=== PATIENT | female | born 1965 | race Caucasian/White ===

== ENCOUNTER → 2016-08-22 | Outpatient (CLI) | payer MEDICAID ==
[~2016-08-22] MED LIST: ALPR2TAB2 PO; AMIT50TA PO; BACL-19 PO; CARB200T3 PO; IBUP800T PO; LEVO750T26 PO; LOSA50TA6 PO; METH4TAB2 PO; METH750T2 PO; MIRT45TA6 PO; OXYC15TA PO; PROM12.55 PO; QUET200T4 PO; SUMA50TA4 PO; ZOLP10TA PO
== END | disposition home or self-care (01) ==
LOC: RAD 13:32
PROVIDERS: ATTEND Internal Medicine
DX: R07.9 Chest pain, unspecified (principal); R05 Cough
CPT/HCPCS: 71020

== ENCOUNTER 2016-09-14 20:52 | Emergency (ER) | payer MEDICAID ==
[~2016-09-14] VITALS: Ht 167.6 cm; Wt 90.5 kg
[2016-09-14] MEDS ORDERED: HYDROmorphone 1 MG/ML, 1ML IM STA (21:10)
[2016-09-14] MEDS ORDERED: DIAZEPAM 5 MG/ML, 2ML IM STA (21:10)
[2016-09-14] MEDS ORDERED: DIAZEPAM 5 MG/ML, 10ML VIAL IM STA (21:13)
[2016-09-14] MEDS ORDERED: HYDROmorphone 1 MG/ML, 1ML ONE (21:14)
[2016-09-14] MEDS ORDERED: DIAZEPAM 5 MG/ML, 2ML ONE (21:15)
[2016-09-14 22:13] VITALS: BP 143/86
== END 2016-09-14 22:16 | disposition home or self-care (01) ==
LOC: ED 22:08
DX: M54.6 Pain in thoracic spine (principal); G89.29 Other chronic pain; M54.5 Low back pain; I10 Essential (primary) hypertension; E87.6 Hypokalemia; J44.0 Chronic obstructive pulmonary disease with (acute) lower respiratory infection; F17.210 Nicotine dependence, cigarettes, uncomplicated
CPT/HCPCS: 96372; 99284; J1170; J3360

== ENCOUNTER 2016-10-08 16:57 | Emergency (ER) | payer MEDICAID ==
[~2016-10-08] VITALS: Ht 167.6 cm; Wt 90.0 kg
[2016-10-08] MEDS ORDERED: BACL-19 PO (17:22)
[2016-10-08] MEDS ORDERED: AMIT25TA PO (17:22)
[2016-10-08] MEDS ORDERED: POTA10TA31 PO (17:22)
[2016-10-08] MEDS ORDERED: ZIPR80CA3 PO (17:22)
[2016-10-08] MEDS ORDERED: METH750T2 PO (17:22)
[2016-10-08] MEDS ORDERED: MIRT30TA6 PO (17:22)
[2016-10-08] MEDS ORDERED: CELE200C PO (17:22)
[2016-10-08] MEDS ORDERED: DIAZ5TAB4 PO (17:22)
[2016-10-08] MEDS ORDERED: SUMA100T4 PO (17:22)
[2016-10-08] MEDS ORDERED: GABA100C PO (17:22)
[2016-10-08] MEDS ORDERED: FLUO40CA2 PO (17:22)
[2016-10-08] MEDS ORDERED: GABAPENTIN 300 MG CAPSULE PO SCH (17:30)
[2016-10-08] MEDS ORDERED: KETOROLAC 30 MG/1 ML IM ONE (17:30)
[2016-10-08] MEDS ORDERED: KETOROLAC 30 MG/1 ML ONE (18:00)
[2016-10-08 20:29] VITALS: BP 134/72
== END 2016-10-08 20:33 | disposition home or self-care (01) ==
LOC: ED 19:12
DX: M79.651 Pain in right thigh (principal); R20.8 Other disturbances of skin sensation; I10 Essential (primary) hypertension
CPT/HCPCS: 72131; 96372; 99284; J1885

== ENCOUNTER 2017-01-20 16:00 | Inpatient (IN) | payer MEDICAID ==
[~2017-01-20] VITALS: Ht 167.6 cm; Wt 92.4 kg
[~2017-01-20 16:00] MED LIST changes: +AMIT25TA PO; +CELE200C PO; +DIAZ5TAB4 PO; +FLUO40CA2 PO; +GABA100C PO; +IBUP-1223 PO; -IBUP800T PO; +MIRT30TA6 PO; +POTA10TA31 PO; +SUMA100T4 PO; +ZIPR80CA3 PO
[2017-01-20] MEDS ORDERED: NALOXONE 1 MG/ML, 2ML IVPush ONE (17:30)
[2017-01-20 18:12] LABS: HEMATOCRIT 41.3 % (34.6-47.8); HEMOGLOBIN 13.4 g/dL (11.7-16.4); WHITE BLOOD COUNT 3.8 x10^3/uL (3.4-10)
[2017-01-20 18:23] LABS: ASPARTATE AMINO TRANSFERASE 15 U/L (15-37); BLOOD UREA NITROGEN 16 mg/dL (7-18)
[2017-01-20 18:31] LABS: ACETAMINOPHEN < 2 mcg/mL (10-30)
[2017-01-20] MEDS ORDERED: SODIUM CHLORIDE 0.9% 1,000 ML IV ONE ×2 (19:00→19:05)
[2017-01-20] MEDS ORDERED: SODIUM CHLORIDE FLUSH 10ML SYR IVF ONE (19:00)
[2017-01-20] MEDS ORDERED: ONDANSETRON 2MG/ML, 2ML IVPush PRN ×2 (19:30→20:30)
[2017-01-20] MEDS ORDERED: ONDANSETRON 2MG/ML, 2ML ONE (19:42)
[2017-01-20] MEDS ORDERED: D5%-0.9% NACL 1,000 ML IV SCH (20:30)
[2017-01-20] MEDS ORDERED: hydrALAzine 20 MG/ML, 1ML IVPush PRN (20:30)
[2017-01-20] MEDS ORDERED: ENOXAPARIN 40 MG/0.4 ML SQ SCH (20:30)
[2017-01-20 20:48] VITALS: BP 110/68
[2017-01-20] MEDS: D5%-0.9% NACL 1,000 ML IV SCH (21:59)
[2017-01-21 00:18] VITALS: BP 129/74
[2017-01-21] MEDS: D5%-0.9% NACL 1,000 ML IV SCH (05:24)
[2017-01-21 05:54] LABS: DAU SCREEN DISCLAIMER
[2017-01-21 07:04] LABS: ASPARTATE AMINO TRANSFERASE 9 U/L (15-37); BLOOD UREA NITROGEN 13 mg/dL (7-18)
[2017-01-21 07:30] VITALS: BP 103/53
[2017-01-21] MEDS ORDERED: METHOCARBAMOL 750 MG TABLET PO SCH (09:30)
[2017-01-21] MEDS ORDERED: SUMATRIPTAN 100 MG TABLET PO SCH (09:30)
[2017-01-21] MEDS ORDERED: GABAPENTIN 100 MG CAPSULE PO SCH (09:30)
[2017-01-21] MEDS ORDERED: IBUPROFEN 800 MG TABLET PO PRN (09:30)
[2017-01-21] MEDS ORDERED: PROMETHAZINE 25MG TABLET PO PRN (09:30)
[2017-01-21] MEDS ORDERED: ALPRazolam 1MG TABLET PO PRN (09:30)
[2017-01-21] MEDS ORDERED: LOSARTAN 50MG TABLET PO SCH (09:30)
[2017-01-21] MEDS ORDERED: FLU VACC QS2017-18 (36MOS+) UP/PF 0.5 ML IM-VACC ONE (10:30)
[2017-01-21] MEDS ORDERED: PNEUMOCOCCAL 23 VACCINE IM-VACC ONE (10:30)
[2017-01-21] MEDS ORDERED: OXYcodone IR 5MG TABLET PO SCH (11:00)
[2017-01-21] MEDS ORDERED: BACLOFEN 10 MG TABLET PO SCH (16:00)
[2017-01-21] MEDS ORDERED: DIAZEPAM 5 MG TABLET PO SCH (21:00)
[2017-01-21] MEDS ORDERED: ZOLPIDEM 10MG TABLET PO SCH (21:00)
[2017-01-21] MEDS ORDERED: CARBAMAZEPINE 200 MG TABLET PO SCH (21:00)
[2017-01-21] MEDS ORDERED: ZIPRASIDONE 40MG CAPSULE PO SCH (21:00)
[2017-01-21] MEDS ORDERED: QUETIAPINE 200 MG TABLET PO SCH (21:00)
[2017-01-21] MEDS ORDERED: AMITRIPTYLINE 25 MG TABLET PO SCH (21:00)
[2017-01-21] MEDS ORDERED: MIRTAZAPINE 30 MG TAB.RAPDIS PO SCH (21:00)
[2017-01-22] MEDS ORDERED: FLUOXETINE 20 MG CAPSULE PO SCH (09:00)
[2017-01-22] MEDS ORDERED: POTASSIUM CHLORIDE 10 MEQ TABLET.ER PO SCH (09:00)
== END 2017-01-21 12:01 | disposition home or self-care (01) | DRG 917 ==
LOC: ED 18:12 → EDIP 19:05 → 4WST 20:48
PROVIDERS: ADMIT Hospitalist; ATTEND Family Medicine
DX: T40.2X1A Poisoning by other opioids, accidental (unintentional), initial encounter (principal); G92 Toxic encephalopathy; Y92.89 Other specified places as the place of occurrence of the external cause; G89.29 Other chronic pain; T42.4X1A Poisoning by benzodiazepines, accidental (unintentional), initial encounter; I10 Essential (primary) hypertension; J44.9 Chronic obstructive pulmonary disease, unspecified; Z79.899 Other long term (current) drug therapy; Z86.73 Personal history of transient ischemic attack (TIA), and cerebral infarction without residual deficits; Z99.81 Dependence on supplemental oxygen
CPT/HCPCS: 36415; 80053; 80307; 80329; 82140; 82962; 83735; 84100; 85025; 90686; 90732; 93005; 96374; 96375; J1650; J2405; J7042; G0479; G0480; J2310; J7030

== ENCOUNTER → 2018-08-12 | Outpatient (CLI) | payer MEDICAID ==
[~2018-08-12] MED LIST changes: +LOSA50TA14 PO; -LOSA50TA6 PO; -MIRT30TA6 PO; +MIRT30TA97 PO; +MIRT45TA57 PO; -MIRT45TA6 PO
== END | disposition home or self-care (01) ==
LOC: RAD 16:54
PROVIDERS: ATTEND Family Medicine
DX: J44.9 Chronic obstructive pulmonary disease, unspecified (principal); M43.26 Fusion of spine, lumbar region
CPT/HCPCS: 71046

== ENCOUNTER 2018-08-29 21:50 | Emergency (ER) | payer MEDICAID ==
[~2018-08-29] VITALS: Ht 167.6 cm; Wt 86.7 kg
[2018-08-29 21:52] VITALS: BP 143/56
--- NOTE | 2018-08-29 22:05 | NUR ---
BRITTNEY RAIN, AT BEDSIDE TO EVALUATE PT.
[2018-08-29] MEDS ORDERED: OXYcodone/APAP 10/325MG TABLET ONE (22:23)
--- NOTE | 2018-08-29 22:28 | NUR ---
Pt medicated per MAR.
[2018-08-29] MEDS ORDERED: OXYcodone/APAP 10/325MG TABLET PO ONE (22:30)
--- NOTE | 2018-08-29 22:32 | NUR ---
Pt to imaging, with tech, via gureece.
== END 2018-08-29 23:33 | disposition home or self-care (01) ==
LOC: ED 22:17
DX: S39.012A Strain of muscle, fascia and tendon of lower back, initial encounter (principal); M25.551 Pain in right hip; M13.151 Monoarthritis, not elsewhere classified, right hip; I10 Essential (primary) hypertension; W01.0XXA Fall on same level from slipping, tripping and stumbling without subsequent striking against object, initial encounter; Y93.89 Activity, other specified; Y92.89 Other specified places as the place of occurrence of the external cause; Y99.8 Other external cause status
CPT/HCPCS: 72110; 72220; 99283

== ENCOUNTER 2019-02-11 10:54 | Emergency (ER) | payer MEDICAID ==
[~2019-02-11 10:54] MED LIST changes: +DOXE150C PO; -PROM12.55 PO; +PROM12.57 PO; +UMEC1DIS INH
[2019-02-11 11:15] VITALS: BP 148/79
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
[2019-02-11] MEDS ORDERED: OXYcodone/APAP 5/325MG TABLET PO ONE (12:00)
[2019-02-11] MEDS ORDERED: OXYcodone/APAP 5/325MG TABLET ONE (12:05)
[2019-02-11 12:12] LABS: BASOPHILS # (AUTO) 0.02 x10^3/uL (0-0.1); BASOPHILS % (AUTO) 0 % (0-1); EOSINOPHILS # (AUTO) 0.08 x10^3/uL (0-0.4); EOSINOPHILS % (AUTO) 1 % (1-7); LYMPHOCYTES # (AUTO) 1.02 x10^3/uL (1-3.4); LYMPHOCYTES % (AUTO) 15 % (22-44); MD NO; MEAN CORPUSCULAR HEMOGLOBIN 29.1 pg (27.0-34.8); MEAN CORPUSCULAR HGB CONC 32.1 g/dL (32.4-35.8); MEAN CORPUSCULAR VOLUME 90.7 fL (80-100); MEAN PLATELET VOLUME 7.7 fL (7.4-10.4); MONOCYTES # (AUTO) 0.61 x10^3/uL (0.2-0.8); MONOCYTES % (AUTO) 9 % (2-9); NEUTROPHILS # (AUTO) 4.95 x10^3/uL (1.8-6.8); NEUTROPHILS % (AUTO) 74 % (42-75); PLATELET COUNT 480 x10^3/uL (130-400); RED BLOOD COUNT 3.69 x10^6/uL (3.82-5.3); RED CELL DISTRIBUTION WIDTH 15.6 % (9.6-15.2)
--- NOTE | 2019-02-11 12:55 | NUR ---
SLING PLACED ON PT. CRUTCHER HELPER HAS SEEN PT.
== END 2019-02-11 13:16 | disposition home or self-care (01) ==
LOC: ED 13:14
DX: M25.511 Pain in right shoulder (principal); I10 Essential (primary) hypertension; J44.9 Chronic obstructive pulmonary disease, unspecified; F17.210 Nicotine dependence, cigarettes, uncomplicated
CPT/HCPCS: 36415; 85025; 99284

== ENCOUNTER → 2019-05-11 | Outpatient (CLI) | payer MEDICAID | END | disposition home or self-care (01) | LOC: CFH 13:16 | PROVIDERS: ATTEND Orthopaedic Surgery | DX: S42.221D 2-part displaced fracture of surgical neck of right humerus, subsequent encounter for fracture with routine healing (principal); R59.0 Localized enlarged lymph nodes; X58.XXXD Exposure to other specified factors, subsequent encounter ==

== ENCOUNTER 2019-06-16 05:32 | Day surgery (SDC) | payer MEDICAID ==
[2019-06-13 16:16] LABS: ALBUMIN 3.5 g/dL (3.4-5.0); ANION GAP 8 mmol/L (5-15); CALCIUM 8.6 mg/dL (8.5-10.1); CHLORIDE 108 mmol/L (98-107)
[2019-06-13 16:20] LABS: ALANINE AMINOTRANSFERASE 20 U/L (12-78); ALKALINE PHOSPHATASE 137 U/L (45-117); BILIRUBIN,TOTAL 0.1 mg/dL (0.2-1.0); CREATININE 0.77 mg/dL (0.55-1.02); TOTAL PROTEIN 7.6 g/dL (6.4-8.2)
[~2019-06-16 05:32] MED LIST changes: +ALBU8.5H8 INH; +CARB200T4 PO; +HYDR25TA6 PO; +MIRT45TA61 PO; -OXYC15TA PO; +OXYC15TA3 PO; +ZOLP5TAB6 PO
[2019-06-16] MEDS ORDERED: FENTANYL PF 250 MCG/5ML ONE (06:11)
[2019-06-16] MEDS ORDERED: MIDAZOLAM 1 MG/ML, 2ML ONE (06:11)
[2019-06-16] MEDS ORDERED: KETOROLAC 30 MG/1 ML ONE (06:14)
[2019-06-16] MEDS ORDERED: SCOPOLAMINE 1MG PATCH TD SCH (06:30)
[2019-06-16] MEDS ORDERED: GABAPENTIN 300 MG CAPSULE PO ONE (06:30)
[2019-06-16] MEDS ORDERED: ACETAMINOPHEN 500 MG TABLET PO ONE (06:30)
[2019-06-16] MEDS ORDERED: LACTATED RINGERS 1,000 ML IV SCH (07:09)
== END 2019-06-16 06:30 | disposition home or self-care (01) ==
LOC: OUT 05:32
PROVIDERS: ATTEND Orthopaedic Surgery
DX: T84.498A Other mechanical complication of other internal orthopedic devices, implants and grafts, initial encounter (principal); Z53.8 Procedure and treatment not carried out for other reasons; Y83.8 Other surgical procedures as the cause of abnormal reaction of the patient, or of later complication, without mention of misadventure at the time of the procedure
CPT/HCPCS: 36415; 80053; 93005; J1885; J2250; J3010

== ENCOUNTER 2019-06-16 06:59 | Emergency (ER) | payer MEDICAID ==
[~2019-06-16] VITALS: Ht 167.6 cm; Wt 70.0 kg
[~2019-06-16 06:59] MED LIST changes: +OXYC15TA PO; -OXYC15TA3 PO
[2019-06-16] MEDS ORDERED: KETOROLAC 30 MG/1 ML IM ONE (07:30)
[2019-06-16] MEDS ORDERED: ONDANSETRON ODT 4 MG PO ONE (07:30)
--- NOTE | 2019-06-16 07:46 | NUR ---
Pt changed into gown and resting on gurney. NAD, even and unlabored respirations, denies additional needs, call light within reach, WCTM
[2019-06-16] MEDS ORDERED: ONDANSETRON ODT 4 MG ONE (07:47)
[2019-06-16] MEDS ORDERED: KETOROLAC 30 MG/1 ML ONE (07:47)
--- NOTE | 2019-06-16 08:00 | NUR ---
late entry: pt medicated per JUN, given discharge instructions and walker. Calling [facility] for taxi. NAD, even and unlabored respirations.
[2019-06-16 08:08] VITALS: BP 119/65
== END 2019-06-16 08:15 | disposition home or self-care (01) ==
LOC: ED 07:39
DX: M25.531 Pain in right wrist (principal); M79.604 Pain in right leg; J44.9 Chronic obstructive pulmonary disease, unspecified; I10 Essential (primary) hypertension; E87.6 Hypokalemia; I95.9 Hypotension, unspecified; F17.210 Nicotine dependence, cigarettes, uncomplicated; Z86.73 Personal history of transient ischemic attack (TIA), and cerebral infarction without residual deficits
CPT/HCPCS: 96372; 99283; J1885; Q0162

== ENCOUNTER 2020-05-23 03:47 | Emergency (ER) | payer MEDICAID ==
[~2020-05-23] VITALS: Ht 167.6 cm; Wt 70.0 kg
[~2020-05-23 03:47] MED LIST changes: +METH-640 PO; -METH750T2 PO; -OXYC15TA PO; +OXYC15TA3 PO
--- NOTE | 2020-05-23 04:17 | NUR ---
INITIAL PT CONTACT. PT PRESENTS TO ED C/O "I FEEL VERY SICK, LOTS OF NAUSEA, LOST MY TASTE AND HOT SWEATS. I DONT FEEL GOOD. I HAVE IT, I DO, I JUST KNOW IT. I HAVE TO AND SHE HAS TO HAVE IT TOO. I ONLY CAN EAT ICE AND SHE KEEPS HAVING THE ICE AFTER ME AND EATING AFTER ME TOO." PT FRANTIC IN ROOM AND ANXIOUS DURING EXAM. PT CONTINUALLY REPEATING SELF AND NOT MAKING EYE CONTACT WITH STAFF AND THIS RN. PT ACCOMPAINED BY GRANDDAUGHTER. SITTING UPRIGHT ON GURNEY, PROVIDED BLANKET. CALL LIGHT IN REACH
--- NOTE | 2020-05-23 05:02 | NUR ---
PT SITTING UPRIGHT ON GURVERONICA, NADN, VSS. CALL LIGHT AND PERSONAL BELONGINGS WITHIN REACH.
--- NOTE | 2020-05-23 05:23 | NUR ---
x ray at bedside
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
[2020-05-23 06:01] VITALS: BP 150/72
--- NOTE | 2020-05-23 06:02 | NUR ---
PT SITTING UPRIGHT ON MINISTERIO FALCON, VSS. PT RESTING CALMLY. CALL LIGHT AND PERSONAL BELONGINGS WITHIN REACH.
--- NOTE | 2020-05-23 06:32 | NUR ---
ERP AT BEDSIDE
--- NOTE | 2020-05-23 07:01 | NUR ---
BEDSIDE REPORT TO AMMY KWOK AND CE KWOK
--- NOTE | 2020-05-23 07:01 | NUR ---
REPORT FROM DESIRE KWOK.
--- NOTE | 2020-05-23 07:38 | NUR ---
PT IS RESTING ON GURNEY WATCHING TV WITH DONALDTER ASLEEP BESIDE HER. PT HAS ONE LEG HANGING OVER THE BEDRAIL. SHE STATES SHE IS CONCERNED THAT "SINCE THEY TAKE BATHS TOGETHER, SHE HAS WHATEVER I HAVE." LINDA HOLLOWAY ORDERED. CALL LIGHT WITHIN REACH. PRIYANKA BIRCH ADVISED THEY WILL BRING A RECLINER CHAIR DOWN FOR THE GRANDAUGHTER AND SOME TOYS.
--- NOTE | 2020-05-23 08:48 | NUR ---
PT UP TO BR, USING ROLLING WALKER WITH RIGHT HAND. PT REQUESTING AND PROVIDED WITH A FEMININE HYGIENE PAD. PT THEN WANTING CLEAN CLOTHS. "I PEED MYSELF" CLOTHING PROVIDED TO PT. PT THREW HER SOILED CLOTHING INTO GARBAGE CAN. PT UNABLE TO PROVIDE URINE SPECIMAN. SPECIMAN CUP FOUND ON FLOOR EMPTY. PT BACK TO ROOM USING ROLLING WALKER WITH ONE HAND. PT PROVIDE WITH BREAKFAST TRAY.
--- NOTE | 2020-05-23 12:31 | NUR ---
pt d/c in wheelchair to phone to call her boyfriend for a ride. She was advised that we did test her for COVID and the results would be 2-3 days. She stated she was not happy with that and that she would "call corporate." She wanted the pink blanket she came in with and a small notepad thrown away. no iv to DC. Reviewed D/C instructions, understanding verbalized.
== END 2020-05-23 12:32 | disposition home or self-care (01) ==
LOC: ED 05:50
DX: J44.1 Chronic obstructive pulmonary disease with (acute) exacerbation (principal); Z20.822 Contact with and (suspected) exposure to COVID-19; R06.00 Dyspnea, unspecified; R06.02 Shortness of breath; R11.0 Nausea; M19.90 Unspecified osteoarthritis, unspecified site; I95.9 Hypotension, unspecified; Z86.73 Personal history of transient ischemic attack (TIA), and cerebral infarction without residual deficits
CPT/HCPCS: 71045; 87635; 93005; 99285

== ENCOUNTER 2020-07-24 21:26 | Inpatient (IN) | payer MEDICAID ==
[~2020-07-24] VITALS: Ht 165.1 cm; Wt 70.2 kg
[~2020-07-24 21:26] MED LIST changes: +ETOMIDATE 20 MG/10 ML ONE; +MIDAZOLAM 1 MG/ML, 5ML ONE; +PROPOFOL 10 MG/ML, 100ML IV ONE; +ROCURONIUM 10MG/ML,5ML ONE
[2020-07-24] MEDS ORDERED: methylPREDNISolone SOD SUCC 125 MG/2 ML IVPush ONE (21:30)
[2020-07-24] MEDS ORDERED: ALBUTEROL/IPRATROPIUM 2.5MG/0.5MG, 3 ML NPPB PRN (21:30)
[2020-07-24] MEDS ORDERED: SODIUM CHLORIDE FLUSH 10ML SYR IVF ONE (21:30)
[2020-07-24] MEDS ORDERED: SODIUM CHLORIDE 0.9% 1,000ML IVBOLUS ONE ×3 (21:30→23:00)
--- NOTE | 2020-07-24 21:41 | NUR ---
PT. IMMEDIATELY MOVED TO TRAUMA ROOM FROM ED 15 UPON ARRIVAL TO ED FOR INTUBATION.
[2020-07-24] MEDS ORDERED: PLEASE ENTER HEIGHT AND WEIGHT MC SCH (22:00)
[2020-07-24 22:15] LABS: MEAN CORPUSCULAR HEMOGLOBIN 30.2 pg (27.0-34.8); MEAN CORPUSCULAR HGB CONC 32.5 g/dL (32.4-35.8); MEAN PLATELET VOLUME 8.4 fL (7.4-10.4); PLATELET COUNT 250 x10^3/uL (130-400); RED BLOOD COUNT 3.38 x10^6/uL (3.82-5.3); RED CELL DISTRIBUTION WIDTH 14.7 % (9.6-15.2)
[2020-07-24 22:27] LABS: ALBUMIN 2.3 g/dL (3.4-5.0); ANION GAP 20 mmol/L (5-15); CALCIUM 7.6 mg/dL (8.5-10.1); CHLORIDE 98 mmol/L (98-107); CREATININE 3.25 mg/dL (0.55-1.02)
[2020-07-24] MEDS ORDERED: NOREPINEPHRINE 8 MG in SODIUM CHLORIDE 0.9% 242 ML IV PRN (22:30)
[2020-07-24] MEDS ORDERED: ETOMIDATE 20 MG/10 ML IV ONE (22:30)
[2020-07-24] MEDS ORDERED: ROCURONIUM 10 MG/ML,10ML IVPush ONE (22:30)
[2020-07-24] MEDS ORDERED: PROPOFOL 100 ML IV PRN (22:30)
[2020-07-24] MEDS ORDERED: MIDAZOLAM 1 MG/ML, 2ML IVPush ONE (22:30)
--- NOTE | 2020-07-24 22:31 | NUR ---
X-RAY DONE AT THIS TIME. PER DR. NESSA BASHIR TO USE CENTRAL LINE NOW.
[2020-07-24 22:44] LABS: ALANINE AMINOTRANSFERASE 2906 U/L (12-78); ALKALINE PHOSPHATASE 410 U/L (45-117); BILIRUBIN,TOTAL 1.7 mg/dL (0.2-1.0); TOTAL PROTEIN 6.4 g/dL (6.4-8.2)
[2020-07-24 22:50] LABS: BAND#(MANUAL) 1.06 x10^3/uL; BANDS%(MANUAL) 7 % (0-7); LYMPH#(MANUAL) 1.06 x10^3/uL (1-3.4); LYMPHS% (MANUAL) 7 % (22-44); METAMYELOCYTES# (MANUAL) 0.15 x10^3/uL (0-0); METAMYELOCYTES% (MANUAL) 1 % (0-1); MONOS#(MANUAL) 0.45 x10^3/uL (0.3-2.7); MONOS% (MANUAL) 3 % (2-9); MYELOCYTES% (MANUAL) 2 % (0-0); SEG#(MANUAL) 12.08 x10^3/uL (1.8-6.8); SEGS% (MANUAL) 80 % (42-75)
[2020-07-24 22:52] LABS: ANISOCYTOSIS 1+; POLYCHROMASIA 1+
[2020-07-24 22:53] LABS: OVALOCYTES 1+
[2020-07-24 22:54] LABS: <PLATELET ESTIMATE> ADEQUATE; <PLT MORPHOLOGY> NORMAL PLT MORPH
[2020-07-24] MEDS ORDERED: CEFTRIAXONE 1,000 MG in DEXTROSE 5% 50 ML IVPB ONE (23:00)
[2020-07-24] MEDS ORDERED: HEPARIN 5,000 UNITS/ML, 1ML IV ONE (23:00)
[2020-07-24] MEDS ORDERED: AZITHROMYCIN 500 MG in SODIUM CHLORIDE 0.9% 250 ML IV ONE (23:00)
[2020-07-24] MEDS ORDERED: VANCOMYCIN PER PHARMACY MC ONE (23:00)
[2020-07-24] MEDS ORDERED: HEPARIN 5,000 UNITS/ML, 1ML IV PRN (23:00)
[2020-07-24] MEDS ORDERED: ASPIRIN 300 MG SUPP PR ONE (23:00)
[2020-07-24] MEDS ORDERED: VANCOMYCIN 2,000 MG in SODIUM CHLORIDE 0.9% 500 ML IV ONE (23:00)
--- NOTE | 2020-07-24 23:04 | NUR ---
SUMMARY OF CARE: 2140: IO ESTABLISHED FOR INTUBATION AFTER MULTIPLE FAILED ATTEMPTS AT IV ACCESS; IO REMOVED AT 2300. 2140: ROCURONIUM 80MG IO AND ETOMIDATE 20MG IO 2147: INTUBATED WITH 7.5 TUBE 21 AT THE LIP. BREATH SOUNDS EQUAL ALL RICH, ETCO2=36, EQUAL CHEST RISE/FALL. 2153: 5MG VERSED IO VENT SETTINGS: A/C 14, 500, 100%, PEEP 5
--- NOTE | 2020-07-24 23:10 | NUR ---
REPORT TO RISSA BOWEN TO ASSUME CARE OF PT.
[2020-07-24] MEDS ORDERED: PROMETHAZINE 25 MG/ML, 1ML IM PRN (23:30)
[2020-07-24] MEDS ORDERED: VANCOMYCIN PER PHARMACY MC PRN (23:30)
[2020-07-24] MEDS: ALBUTEROL/IPRATROPIUM 2.5MG/0.5MG, 3 ML HHN SCH (23:30)
[2020-07-24] MEDS ORDERED: HEPARIN 5,000 UNITS/ML, 1ML SQ SCH (23:30)
[2020-07-24] MEDS ORDERED: SODIUM CHLORIDE 0.9% 1,000 ML IV SCH (23:30)
[2020-07-24] MEDS ORDERED: PHARMACY MAY ADJ FOR RENAL FX MC PRN (23:30)
--- NOTE | 2020-07-24 23:30 | NUR ---
REPORT FROM CAROLINA KWOK, TRANSFER OF CARE AT THIS TIME
--- NOTE | 2020-07-24 23:35 | NUR ---
PHARM CALLED FOR ABX, STS WILL SEND AFTER VERIFIED
[2020-07-24 23:40] LABS: ALBUMIN 2.2 g/dL (3.4-5.0); BILIRUBIN, DIRECT 1.3 mg/dL (0.1-0.2)
[2020-07-24] MEDS ORDERED: HEPARIN 5,000 UNITS/ML, 1ML ONE (23:44)
[2020-07-24] MEDS ORDERED: HEPARIN 25,000 UNITS/250ML PMX 250 ML ONE (23:45)
[2020-07-24] MEDS ORDERED: ASPIRIN 300 MG SUPP ONE (23:53)
[2020-07-24 23:55] LABS: BILIRUBIN,INDIRECT 0.4 mg/dL (0.0-2.0); BILIRUBIN,TOTAL 1.7 mg/dL (0.2-1.0); TOTAL PROTEIN 6.4 g/dL (6.4-8.2)
[2020-07-24] MEDS: HEPARIN 25,000 UNITS/250ML PMX 250 ML IV PRN (23:59)
--- NOTE | 2020-07-25 00:03 | NUR ---
HEPARIN STARTED AND VERIFIED WITH CAROLINA KWOK.
[2020-07-25 00:04] LABS: MICROSCOPIC INDICATED
[2020-07-25 00:18] LABS: POTASSIUM,URINE RANDOM 86 mmol/L; SODIUM,URINE RANDOM 12 mmol/L
[2020-07-25] MEDS: HEPARIN 25,000 UNITS/250ML PMX 250 ML IV PRN (00:22)
--- NOTE | 2020-07-25 00:29 | NUR ---
CALLED BACK UP TO CCU TO LET RN KNOW THAT THE LITER HANGING ON TRANSPORT WAS THE 3RD LITER. PER DR. SZYMANSKI PT. WAS TO RECEIVE TOTAL OF 3 LITERS; NOT THE TOTAL OF 1,000+1,000,+2,300 IT WAS ORDERED.
[2020-07-25] MEDS ORDERED: LIDOCAINE-MPF 1%, 2ML ENDO PRN (00:30)
[2020-07-25 00:40] LABS: CHLORIDE,URINE RANDOM < 10 mmol/L
[2020-07-25] MEDS ORDERED: LIDOCAINE-MPF 2% ,5ML ONE (00:50)
[2020-07-25] MEDS: methylPREDNISolone SOD SUCC 125 MG/2 ML IVPush SCH ×3 (00:55→17:03)
[2020-07-25 01:51] VITALS: BP 139/111
[2020-07-25 02:00] LABS: TRIGLYCERIDES 89 mg/dL (50-200)
[2020-07-25] MEDS: PIPERACILLIN/TAZO 3.375 GM in DEXTROSE 5% 50 ML IVPB SCH ×5 (02:35→22:24)
[2020-07-25] MEDS: ALBUTEROL/IPRATROPIUM 2.5MG/0.5MG, 3 ML HHN SCH ×4 (03:00→21:00)
[2020-07-25 04:00] VITALS: BP 104/71
[2020-07-25 04:21] LABS: BASOPHILS % (AUTO) 0 % (0-1); EOSINOPHILS % (AUTO) 0 % (1-7); LYMPHOCYTES % (AUTO) 3 % (22-44); MEAN CORPUSCULAR HGB CONC 32.6 g/dL (32.4-35.8); MEAN PLATELET VOLUME 8.8 fL (7.4-10.4); MONOCYTES % (AUTO) 4 % (2-9); NEUTROPHILS % (AUTO) 93 % (42-75); PLATELET COUNT 251 x10^3/uL (130-400); RED BLOOD COUNT 3.34 x10^6/uL (3.82-5.3); RED CELL DISTRIBUTION WIDTH 14.6 % (9.6-15.2)
[2020-07-25 04:29] LABS: ALBUMIN 2.2 g/dL (3.4-5.0); ANION GAP 14 mmol/L (5-15); CALCIUM 6.8 mg/dL (8.5-10.1); CHLORIDE 100 mmol/L (98-107)
[2020-07-25 04:40] LABS: ALKALINE PHOSPHATASE 419 U/L (45-117); BILIRUBIN,TOTAL 1.6 mg/dL (0.2-1.0); CREATININE 2.96 mg/dL (0.55-1.02); TOTAL PROTEIN 6.2 g/dL (6.4-8.2)
[2020-07-25 04:46] LABS: ALANINE AMINOTRANSFERASE 5712 U/L (12-78)
[2020-07-25] MEDS: ASPIRIN 325 MG TABLET EC PO SCH (06:00)
[2020-07-25] MEDS: LACTATED RINGERS 1,000 ML IV SCH ×3 (07:00→19:34)
[2020-07-25] MEDS: HEPARIN 5,000 UNITS/ML, 1ML IV PRN ×3 (07:16→20:35)
[2020-07-25] MEDS: FAMOTIDINE 20 MG/2 ML IVPush SCH ×2 (08:51→19:32)
[2020-07-25] MEDS: PROPOFOL 100 ML IV PRN ×2 (09:17→19:33)
[2020-07-25 09:47] LABS: AMPHETAMINE SCREEN, URINE Positive (Negative); BARBITURATE SCREEN, URINE Negative (Negative); BENZODIAZEPINE SCREEN, URINE Positive (Negative); CANNABINOID SCREEN, URINE Negative (Negative); COCAINE SCREEN, URINE Negative (Negative); METHADONE SCREEN, URINE Negative (Negative); OPIATE SCREEN, URINE Positive (Negative)
[2020-07-25 10:17] LABS: INTERNATIONAL NORMALIZED RATIO 1.56 (0.93-1.1); PROTHROMBIN TIME 16.5 Seconds (9.6-11.5)
[2020-07-25 12:00] LABS: IRON LEVEL 225 mcg/dL (50-170); TOTAL IRON BINDING CAPACITY 188 mcg/dL (250-450)
[2020-07-25 12:03] LABS: % IRON SATURATION 120 % (20-55)
[2020-07-25 13:11] LABS: ALBUMIN 2.2 g/dL (3.4-5.0); ANION GAP 10 mmol/L (5-15); CALCIUM 6.4 mg/dL (8.5-10.1); CHLORIDE 102 mmol/L (98-107)
[2020-07-25 13:34] LABS: ALANINE AMINOTRANSFERASE 6974 U/L (12-78); ALKALINE PHOSPHATASE 425 U/L (45-117); BILIRUBIN,TOTAL 1.1 mg/dL (0.2-1.0); CREATININE 3.42 mg/dL (0.55-1.02); TOTAL PROTEIN 6.2 g/dL (6.4-8.2)
[2020-07-25] MEDS: LACTULOSE 20 GM/30 ML UDC PO SCH (19:32)
[2020-07-26] MEDS: methylPREDNISolone SOD SUCC 125 MG/2 ML IVPush SCH ×4 (00:23→22:56)
[2020-07-26] MEDS: ALBUTEROL/IPRATROPIUM 2.5MG/0.5MG, 3 ML HHN SCH ×4 (02:44→19:50)
[2020-07-26] MEDS: PROPOFOL 100 ML IV PRN ×2 (03:45→17:00)
[2020-07-26] MEDS: LACTATED RINGERS 1,000 ML IV SCH ×4 (03:46→22:56)
[2020-07-26 03:47] LABS: BASOPHILS % (AUTO) 0 % (0-1); EOSINOPHILS % (AUTO) 0 % (1-7); LYMPHOCYTES % (AUTO) 4 % (22-44); MEAN CORPUSCULAR HEMOGLOBIN 30.5 pg (27.0-34.8); MEAN CORPUSCULAR HGB CONC 33.3 g/dL (32.4-35.8); MEAN PLATELET VOLUME 8.6 fL (7.4-10.4); MONOCYTES % (AUTO) 2 % (2-9); NEUTROPHILS % (AUTO) 94 % (42-75); PLATELET COUNT 229 x10^3/uL (130-400); RED BLOOD COUNT 3.12 x10^6/uL (3.82-5.3); RED CELL DISTRIBUTION WIDTH 14.5 % (9.6-15.2)
[2020-07-26 03:53] LABS: ALBUMIN 2.1 g/dL (3.4-5.0); ANION GAP 16 mmol/L (5-15); CHLORIDE 101 mmol/L (98-107)
[2020-07-26 03:56] VITALS: BP 125/78
[2020-07-26 03:59] LABS: INTERNATIONAL NORMALIZED RATIO 1.47 (0.93-1.1); PROTHROMBIN TIME 15.6 Seconds (9.6-11.5)
[2020-07-26 04:03] LABS: CALCIUM 5.7 mg/dL (8.5-10.1)
[2020-07-26] MEDS: HEPARIN 5,000 UNITS/ML, 1ML IV PRN ×2 (04:07→11:47)
[2020-07-26 04:18] LABS: ALANINE AMINOTRANSFERASE 5879 U/L (12-78); ALKALINE PHOSPHATASE 413 U/L (45-117); BILIRUBIN,TOTAL 0.9 mg/dL (0.2-1.0); CREATININE 4.13 mg/dL (0.55-1.02); TOTAL PROTEIN 5.9 g/dL (6.4-8.2)
[2020-07-26] MEDS: ASPIRIN 325 MG TABLET EC PO SCH (04:29)
[2020-07-26] MEDS: PIPERACILLIN/TAZO 3.375 GM in DEXTROSE 5% 50 ML IVPB SCH ×2 (04:29→10:56)
[2020-07-26] MEDS ORDERED: CALCIUM GLUCONATE 9.2 MEQ in SODIUM CHLORIDE 0.9% 100 ML IV ONE (05:30)
[2020-07-26] MEDS ORDERED: FUROSEMIDE 40 MG/4 ML IV ONE (08:00)
[2020-07-26] MEDS: LACTULOSE 20 GM/30 ML UDC PO SCH ×2 (08:38→19:15)
[2020-07-26] MEDS: FAMOTIDINE 20 MG/2 ML IVPush SCH (08:40)
[2020-07-26] MEDS: DEXMEDETOMIDINE 400 MCG in SODIUM CHLORIDE 0.9% 96 ML IV PRN (10:51)
[2020-07-26] MEDS: CALCIUM CARBONATE 500 MG TABLET PO SCH ×3 (10:53→19:15)
[2020-07-26 13:41] LABS: ANA SCREEN NEGATIVE (Negative)
--- NOTE | 2020-07-26 14:23 | NUR ---
Vital AF goal: 45 on propofol, 55 ml/hr off propofol Addendum: 07/26/20 at [address] Amended: Links added.
[2020-07-26] MEDS: PIPERACILLIN/TAZO(ZOSYN) 2.25 GM in NS 50 ML IVPB SCH ×2 (17:22→21:24)
[2020-07-26] MEDS: HEPARIN 25,000 UNITS/250ML PMX 250 ML IV PRN (18:39)
[2020-07-27] MEDS: ALBUTEROL/IPRATROPIUM 2.5MG/0.5MG, 3 ML HHN SCH ×4 (00:35→18:15)
[2020-07-27] MEDS: PROPOFOL 100 ML IV PRN ×4 (02:17→22:15)
[2020-07-27 04:00] VITALS: BP 96/68
[2020-07-27] MEDS: ASPIRIN 325 MG TABLET EC PO SCH (04:15)
[2020-07-27] MEDS: PIPERACILLIN/TAZO(ZOSYN) 2.25 GM in NS 50 ML IVPB SCH ×4 (04:15→22:56)
[2020-07-27] MEDS: LACTATED RINGERS 1,000 ML IV SCH (04:15)
[2020-07-27 04:38] LABS: MEAN CORPUSCULAR HGB CONC 32.7 g/dL (32.4-35.8); MEAN PLATELET VOLUME 8.7 fL (7.4-10.4); PLATELET COUNT 231 x10^3/uL (130-400); RED BLOOD COUNT 3.07 x10^6/uL (3.82-5.3); RED CELL DISTRIBUTION WIDTH 14.4 % (9.6-15.2)
[2020-07-27 04:47] LABS: ALBUMIN 2.2 g/dL (3.4-5.0); ANION GAP 17 mmol/L (5-15); CHLORIDE 99 mmol/L (98-107); CREATININE 4.87 mg/dL (0.55-1.02)
[2020-07-27 04:51] LABS: CALCIUM 5.3 mg/dL (8.5-10.1)
[2020-07-27 04:59] LABS: ALKALINE PHOSPHATASE 377 U/L (45-117); TOTAL PROTEIN 5.8 g/dL (6.4-8.2); VANCOMYCIN,RANDOM 24.3 mcg/mL
[2020-07-27 05:13] LABS: ALANINE AMINOTRANSFERASE 4136 U/L (12-78)
[2020-07-27] MEDS: HEPARIN 5,000 UNITS/ML, 1ML IV PRN (05:28)
[2020-07-27] MEDS ORDERED: CALCIUM GLUCONATE 0.46MEQ/1ML IVPB ONE (05:30)
[2020-07-27] MEDS ORDERED: CALCIUM GLUCONATE 9.2 MEQ in SODIUM CHLORIDE 0.9% 100 ML IV ONE (05:30)
[2020-07-27 05:43] LABS: BAND#(MANUAL) 2.43 x10^3/uL; BANDS%(MANUAL) 13 % (0-7); LYMPH#(MANUAL) 0.75 x10^3/uL (1-3.4); LYMPHS% (MANUAL) 4 % (22-44); METAMYELOCYTES% (MANUAL) 8 % (0-1); MONOS#(MANUAL) 0.56 x10^3/uL (0.3-2.7); MONOS% (MANUAL) 3 % (2-9); MYELOCYTES# (MANUAL) 0.19 x10^3/uL (0-0); MYELOCYTES% (MANUAL) 1 % (0-0); SEG#(MANUAL) 13.28 x10^3/uL (1.8-6.8); SEGS% (MANUAL) 71 % (42-75)
[2020-07-27 05:44] LABS: ANISOCYTOSIS 1+
[2020-07-27 05:45] LABS: <PLATELET ESTIMATE> ADEQUATE; <PLT MORPHOLOGY> NORMAL PLT MORPH; OVALOCYTES 1+; POLYCHROMASIA 1+
[2020-07-27] MEDS: FAMOTIDINE 20 MG TABLET PO SCH (08:31)
[2020-07-27] MEDS: LACTULOSE 20 GM/30 ML UDC PO SCH ×2 (08:31→22:15)
[2020-07-27] MEDS: CALCIUM CARBONATE 500 MG TABLET PO SCH ×3 (08:31→22:16)
[2020-07-27] MEDS: methylPREDNISolone SOD SUCC 125 MG/2 ML IVPush SCH ×2 (08:31→16:51)
[2020-07-27] MEDS: METOCLOPRAMIDE 5 MG/ML, 2ML IV SCH ×2 (10:39→16:51)
[2020-07-27] MEDS: CALCITRIOL 1 MCG/ML IVPush SCH ×2 (13:33→13:46)
[2020-07-27] MEDS: FENTANYL PF 100 MCG/2ML IVPush PRN ×2 (16:57→20:20)
[2020-07-27] MEDS ORDERED: NOREPINEPHRINE 8 MG in SODIUM CHLORIDE 0.9% 242 ML IV PRN (17:00)
[2020-07-28] MEDS: methylPREDNISolone SOD SUCC 125 MG/2 ML IVPush SCH (01:10)
[2020-07-28] MEDS: FENTANYL PF 100 MCG/2ML IVPush PRN ×5 (01:11→23:38)
[2020-07-28] MEDS: METOCLOPRAMIDE 5 MG/ML, 2ML IV SCH ×3 (01:11→20:15)
[2020-07-28] MEDS: ALBUTEROL/IPRATROPIUM 2.5MG/0.5MG, 3 ML HHN SCH ×4 (02:03→19:12)
[2020-07-28 02:05] LABS: OCCULT BLOOD NEGATIVE (NEGATIVE)
[2020-07-28] MEDS ORDERED: ASPIRIN 325 MG TABLET PO SCH (04:30)
[2020-07-28] MEDS: PIPERACILLIN/TAZO(ZOSYN) 2.25 GM in NS 50 ML IVPB SCH (05:02)
[2020-07-28 05:24] LABS: MEAN CORPUSCULAR HEMOGLOBIN 30.5 pg (27.0-34.8); MEAN CORPUSCULAR HGB CONC 33.6 g/dL (32.4-35.8); MEAN PLATELET VOLUME 8.4 fL (7.4-10.4); PLATELET COUNT 300 x10^3/uL (130-400); RED BLOOD COUNT 2.91 x10^6/uL (3.82-5.3)
[2020-07-28 05:32] LABS: ALBUMIN 2.2 g/dL (3.4-5.0); ANION GAP 13 mmol/L (5-15); CALCIUM 6.4 mg/dL (8.5-10.1); CHLORIDE 100 mmol/L (98-107); CREATININE 4.15 mg/dL (0.55-1.02); TRIGLYCERIDES 100 mg/dL (50-200)
[2020-07-28 05:39] LABS: ALANINE AMINOTRANSFERASE 3050 U/L (12-78); ALKALINE PHOSPHATASE 365 U/L (45-117); BILIRUBIN,TOTAL 1.3 mg/dL (0.2-1.0); TOTAL PROTEIN 5.9 g/dL (6.4-8.2)
[2020-07-28 06:23] LABS: BAND#(MANUAL) 4.02 x10^3/uL; BANDS%(MANUAL) 15 % (0-7); LYMPH#(MANUAL) 1.61 x10^3/uL (1-3.4); LYMPHS% (MANUAL) 6 % (22-44); METAMYELOCYTES# (MANUAL) 2.14 x10^3/uL (0-0); METAMYELOCYTES% (MANUAL) 8 % (0-1); MONOS#(MANUAL) 0.27 x10^3/uL (0.3-2.7); MONOS% (MANUAL) 1 % (2-9); MYELOCYTES# (MANUAL) 0.54 x10^3/uL (0-0); MYELOCYTES% (MANUAL) 2 % (0-0); SEG#(MANUAL) 18.22 x10^3/uL (1.8-6.8); SEGS% (MANUAL) 68 % (42-75)
[2020-07-28 06:24] LABS: <PLATELET ESTIMATE> ADEQUATE; <PLT MORPHOLOGY> NORMAL PLT MORPH; POLYCHROMASIA 1+
[2020-07-28] MEDS: PROPOFOL 100 ML IV PRN ×3 (06:42→17:28)
[2020-07-28] MEDS: CEFTRIAXONE 2 GM in DEXTROSE 5% 50 ML IVPB SCH (08:05)
[2020-07-28] MEDS: FAMOTIDINE 20 MG TABLET PO SCH (08:47)
[2020-07-28] MEDS: CALCIUM CARBONATE 500 MG TABLET PO SCH ×3 (08:47→20:15)
[2020-07-28] MEDS: HEPARIN 5,000 UNITS/ML, 1ML SQ SCH ×3 (08:49→23:39)
[2020-07-28 11:06] LABS: CLOSTRIDIUM DIFFICILE ANTIGEN NEGATIVE; CLOSTRIDIUM DIFFICILE TOXIN NEGATIVE (Negative)
[2020-07-28] MEDS: CALCITRIOL 1 MCG/ML SOL PO/NG SCH (11:24)
[2020-07-28] MEDS: methylPREDNISolone SOD SUCC 40 MG/ML IVPush SCH ×2 (11:43→23:40)
[2020-07-28] MEDS: DEXMEDETOMIDINE 400 MCG in SODIUM CHLORIDE 0.9% 96 ML IV PRN ×2 (20:15→23:49)
[2020-07-29] MEDS: ALBUTEROL/IPRATROPIUM 2.5MG/0.5MG, 3 ML HHN SCH ×4 (00:57→20:50)
[2020-07-29] MEDS: FENTANYL PF 100 MCG/2ML IVPush PRN ×3 (03:44→13:00)
[2020-07-29] MEDS: DEXMEDETOMIDINE 1,000 MCG in SODIUM CHLORIDE 0.9% 240 ML IV PRN ×3 (03:44→22:45)
[2020-07-29 04:26] LABS: MEAN CORPUSCULAR HEMOGLOBIN 29.6 pg (27.0-34.8); MEAN CORPUSCULAR HGB CONC 32.6 g/dL (32.4-35.8); MEAN PLATELET VOLUME 8.6 fL (7.4-10.4); PLATELET COUNT 298 x10^3/uL (130-400); RED BLOOD COUNT 3.25 x10^6/uL (3.82-5.3)
[2020-07-29] MEDS: ASPIRIN 81 MG TABLET CHEW PO SCH (04:27)
[2020-07-29] MEDS: morphine SULFATE 10 MG/ML, 1ML IVPush PRN (04:27)
[2020-07-29 04:34] LABS: ANION GAP 14 mmol/L (5-15); CALCIUM 7.8 mg/dL (8.5-10.1); CHLORIDE 101 mmol/L (98-107); CREATININE 3.73 mg/dL (0.55-1.02)
[2020-07-29 05:02] LABS: BAND#(MANUAL) 3.51 x10^3/uL; BANDS%(MANUAL) 13 % (0-7); LYMPH#(MANUAL) 0.81 x10^3/uL (1-3.4); LYMPHS% (MANUAL) 3 % (22-44); METAMYELOCYTES# (MANUAL) 0.54 x10^3/uL (0-0); METAMYELOCYTES% (MANUAL) 2 % (0-1); MONOS#(MANUAL) 0.81 x10^3/uL (0.3-2.7); MONOS% (MANUAL) 3 % (2-9); MYELOCYTES# (MANUAL) 1.89 x10^3/uL (0-0); MYELOCYTES% (MANUAL) 7 % (0-0); SEG#(MANUAL) 19.44 x10^3/uL (1.8-6.8); SEGS% (MANUAL) 72 % (42-75)
[2020-07-29 05:03] LABS: <PLATELET ESTIMATE> ADEQUATE; ANISOCYTOSIS 1+; POLYCHROMASIA 1+; TOXIC GRAN 1+
[2020-07-29 05:04] LABS: <PLT MORPHOLOGY> NORMAL PLT MORPH
[2020-07-29] MEDS ORDERED: ASPIRIN 81 MG TABLET EC PO SCH (06:00)
[2020-07-29] MEDS: CALCITRIOL 1 MCG/ML SOL PO/NG SCH (08:27)
[2020-07-29] MEDS: HEPARIN 5,000 UNITS/ML, 1ML SQ SCH ×2 (08:28→17:39)
[2020-07-29] MEDS: METOCLOPRAMIDE 5 MG/ML, 2ML IV SCH (08:28)
[2020-07-29] MEDS: FAMOTIDINE 20 MG TABLET PO SCH (08:28)
[2020-07-29] MEDS: CALCIUM CARBONATE 500 MG TABLET PO SCH ×3 (08:28→21:40)
[2020-07-29] MEDS: CEFTRIAXONE 2 GM in DEXTROSE 5% 50 ML IVPB SCH (08:29)
[2020-07-29] MEDS ORDERED: LACTULOSE 20 GM/30 ML UDC PO PRN (09:00)
[2020-07-29] MEDS: methylPREDNISolone SOD SUCC 40 MG/ML IVPush SCH (12:59)
[2020-07-29] MEDS: PROPOFOL 100 ML IV PRN (20:39)
[2020-07-30] MEDS: methylPREDNISolone SOD SUCC 40 MG/ML IVPush SCH (00:18)
[2020-07-30] MEDS: HEPARIN 5,000 UNITS/ML, 1ML SQ SCH ×3 (00:18→16:32)
[2020-07-30] MEDS: ALBUTEROL/IPRATROPIUM 2.5MG/0.5MG, 3 ML HHN SCH ×4 (02:39→18:46)
[2020-07-30] MEDS: FENTANYL PF 100 MCG/2ML IVPush PRN ×3 (04:16→11:35)
[2020-07-30 04:58] LABS: MEAN CORPUSCULAR HEMOGLOBIN 29.6 pg (27.0-34.8); MEAN CORPUSCULAR HGB CONC 32.4 g/dL (32.4-35.8); MEAN PLATELET VOLUME 8.4 fL (7.4-10.4); PLATELET COUNT 300 x10^3/uL (130-400); RED BLOOD COUNT 3.43 x10^6/uL (3.82-5.3); RED CELL DISTRIBUTION WIDTH 15.2 % (9.6-15.2)
[2020-07-30] MEDS: ASPIRIN 81 MG TABLET CHEW PO SCH (05:18)
[2020-07-30] MEDS: PROPOFOL 100 ML IV PRN ×3 (05:18→22:24)
[2020-07-30 06:17] LABS: BAND#(MANUAL) 2.75 x10^3/uL; BANDS%(MANUAL) 11 % (0-7); LYMPHS% (MANUAL) 2 % (22-44); MONOS% (MANUAL) 2 % (2-9); REACTIVE LYMPHS # (MANUAL) 0.25 x10^3/uL (0-0); REACTIVE LYMPHS % (MANUAL) 1 % (0-0)
[2020-07-30 06:18] LABS: MYELOCYTES% (MANUAL) 3 % (0-0)
[2020-07-30 06:19] LABS: METAMYELOCYTES# (MANUAL) 1.25 x10^3/uL (0-0); METAMYELOCYTES% (MANUAL) 5 % (0-1); MYELOCYTES# (MANUAL) 0.75 x10^3/uL (0-0)
[2020-07-30 06:20] LABS: SEGS% (MANUAL) 76 % (42-75)
[2020-07-30 06:21] LABS: <PLATELET ESTIMATE> ADEQUATE; <PLT MORPHOLOGY> NORMAL PLT MORPH; ANISOCYTOSIS 1+; POLYCHROMASIA 1+
[2020-07-30] MEDS: CEFTRIAXONE 2 GM in DEXTROSE 5% 50 ML IVPB SCH (07:48)
[2020-07-30] MEDS: DEXMEDETOMIDINE 1,000 MCG in SODIUM CHLORIDE 0.9% 240 ML IV PRN ×2 (07:48→16:15)
[2020-07-30] MEDS ORDERED: ERGOCALCIFEROL 50,000 UNIT CAPSULE PO SCH (10:00)
[2020-07-30] MEDS: CALCIUM CARBONATE 500 MG TABLET PO SCH ×3 (10:34→22:23)
[2020-07-30] MEDS: CALCITRIOL 1 MCG/ML SOL PO/NG SCH (10:34)
[2020-07-30] MEDS: FAMOTIDINE 20 MG/2 ML IVPush SCH (10:35)
[2020-07-30] MEDS: ERGOCALCIFEROL 8,000UNIT/ML PO SCH (11:35)
[2020-07-31] MEDS: HEPARIN 5,000 UNITS/ML, 1ML SQ SCH ×3 (00:31→17:01)
[2020-07-31] MEDS: DEXMEDETOMIDINE 1,000 MCG in SODIUM CHLORIDE 0.9% 240 ML IV PRN (00:31)
[2020-07-31] MEDS: FENTANYL PF 100 MCG/2ML IVPush PRN ×2 (01:44→07:26)
[2020-07-31] MEDS: ALBUTEROL/IPRATROPIUM 2.5MG/0.5MG, 3 ML HHN SCH ×2 (02:25→06:56)
[2020-07-31] MEDS: PROPOFOL 100 ML IV PRN (02:48)
[2020-07-31 04:30] LABS: MEAN CORPUSCULAR HEMOGLOBIN 30.5 pg (27.0-34.8); MEAN CORPUSCULAR HGB CONC 33.1 g/dL (32.4-35.8); MEAN PLATELET VOLUME 8.3 fL (7.4-10.4); PLATELET COUNT 268 x10^3/uL (130-400); RED BLOOD COUNT 3.22 x10^6/uL (3.82-5.3); RED CELL DISTRIBUTION WIDTH 15.7 % (9.6-15.2)
[2020-07-31 04:39] LABS: ALANINE AMINOTRANSFERASE 997 U/L (12-78); ALBUMIN 2.3 g/dL (3.4-5.0); ANION GAP 9 mmol/L (5-15); CALCIUM 8.5 mg/dL (8.5-10.1); CHLORIDE 106 mmol/L (98-107); CREATININE 3.21 mg/dL (0.55-1.02)
[2020-07-31 04:43] LABS: ALKALINE PHOSPHATASE 302 U/L (45-117); BILIRUBIN,TOTAL 0.7 mg/dL (0.2-1.0); CREATINE KINASE, TOTAL 18 U/L (26-192); TOTAL PROTEIN 5.7 g/dL (6.4-8.2); TRIGLYCERIDES 158 mg/dL (50-200)
[2020-07-31 05:12] LABS: ANISOCYTOSIS 1+; BAND#(MANUAL) 0.79 x10^3/uL; BANDS%(MANUAL) 4 % (0-7); LYMPH#(MANUAL) 0.59 x10^3/uL (1-3.4); LYMPHS% (MANUAL) 3 % (22-44); METAMYELOCYTES% (MANUAL) 1 % (0-1); MONOS% (MANUAL) 1 % (2-9); MYELOCYTES# (MANUAL) 0.59 x10^3/uL (0-0); MYELOCYTES% (MANUAL) 3 % (0-0); REACTIVE LYMPHS % (MANUAL) 1 % (0-0); SEG#(MANUAL) 17.23 x10^3/uL (1.8-6.8); SEGS% (MANUAL) 87 % (42-75)
[2020-07-31 05:13] LABS: <PLATELET ESTIMATE> ADEQUATE; <PLT MORPHOLOGY> NORMAL PLT MORPH; POLYCHROMASIA 1+
[2020-07-31] MEDS: ASPIRIN 81 MG TABLET CHEW PO SCH (05:13)
[2020-07-31] MEDS: CEFTRIAXONE 2 GM in DEXTROSE 5% 50 ML IVPB SCH (07:30)
[2020-07-31] MEDS ORDERED: OXYcodone 5 MG/5 ML ORAL.SOL UDC PO PRN (09:00)
[2020-07-31] MEDS: FAMOTIDINE 20 MG/2 ML IVPush SCH (09:28)
[2020-07-31] MEDS: CALCIUM CARBONATE 500 MG TABLET PO SCH ×3 (09:29→20:19)
[2020-07-31] MEDS: CALCITRIOL 1 MCG/ML SOL PO/NG SCH (09:30)
[2020-07-31] MEDS: FUROSEMIDE 40 MG/4 ML IV SCH ×2 (10:36→20:19)
[2020-07-31] MEDS ORDERED: ALPRazolam 1MG TAB PO PRN (11:30)
[2020-07-31] MEDS: OXYcodone 5 MG/5 ML ORAL.SOL UDC PO PRN ×2 (13:29→22:37)
[2020-07-31] MEDS: BUDESONIDE 0.5 MG/2 ML INHA INH SCH ×2 (15:30→20:33)
[2020-07-31] MEDS: ALBUTEROL/IPRATROPIUM 2.5MG/0.5MG, 3 ML NPPB SCH ×2 (15:40→20:33)
[2020-08-01] MEDS: HEPARIN 5,000 UNITS/ML, 1ML SQ SCH ×4 (01:05→21:03)
[2020-08-01] MEDS: OXYcodone 5 MG/5 ML ORAL.SOL UDC PO PRN ×3 (04:22→19:59)
[2020-08-01 04:39] LABS: MEAN CORPUSCULAR HEMOGLOBIN 30.8 pg (27.0-34.8); MEAN CORPUSCULAR HGB CONC 33.7 g/dL (32.4-35.8); MEAN PLATELET VOLUME 8.2 fL (7.4-10.4); PLATELET COUNT 229 x10^3/uL (130-400); RED BLOOD COUNT 3.06 x10^6/uL (3.82-5.3); RED CELL DISTRIBUTION WIDTH 15.7 % (9.6-15.2)
[2020-08-01 04:52] LABS: ALBUMIN 2.6 g/dL (3.4-5.0); ANION GAP 11 mmol/L (5-15); CALCIUM 8.8 mg/dL (8.5-10.1); CHLORIDE 103 mmol/L (98-107)
[2020-08-01 04:54] LABS: ALANINE AMINOTRANSFERASE 734 U/L (12-78); ALKALINE PHOSPHATASE 293 U/L (45-117); BILIRUBIN,TOTAL 0.8 mg/dL (0.2-1.0); TOTAL PROTEIN 6.2 g/dL (6.4-8.2)
[2020-08-01] MEDS: ASPIRIN 81 MG TABLET CHEW PO SCH (05:27)
[2020-08-01 05:49] LABS: <PLATELET ESTIMATE> ADEQUATE; <PLT MORPHOLOGY> NORMAL PLT MORPH; ANISOCYTOSIS 1+; BAND#(MANUAL) 0.36 x10^3/uL; BANDS%(MANUAL) 2 % (0-7); LYMPH#(MANUAL) 1.61 x10^3/uL (1-3.4); LYMPHS% (MANUAL) 9 % (22-44); METAMYELOCYTES# (MANUAL) 0.54 x10^3/uL (0-0); METAMYELOCYTES% (MANUAL) 3 % (0-1); MONOS#(MANUAL) 0.72 x10^3/uL (0.3-2.7); MONOS% (MANUAL) 4 % (2-9); MYELOCYTES# (MANUAL) 0.18 x10^3/uL (0-0); MYELOCYTES% (MANUAL) 1 % (0-0); POLYCHROMASIA 1+; SEGS% (MANUAL) 81 % (42-75)
[2020-08-01] MEDS: BUDESONIDE 0.5 MG/2 ML INHA INH SCH (06:30)
[2020-08-01] MEDS: ALBUTEROL/IPRATROPIUM 2.5MG/0.5MG, 3 ML NPPB SCH ×4 (06:30→20:10)
[2020-08-01] MEDS: CEFTRIAXONE 2 GM in DEXTROSE 5% 50 ML IVPB SCH (07:29)
[2020-08-01] MEDS: FUROSEMIDE 40 MG/4 ML IV SCH (08:37)
[2020-08-01] MEDS: CALCIUM CARBONATE 500 MG TABLET PO SCH ×3 (08:38→19:45)
[2020-08-01] MEDS: CHOLESTYRAMINE LIGHT 4GM PACKET PO SCH ×2 (08:38→21:03)
[2020-08-01] MEDS ORDERED: CALCITRIOL 1 MCG/ML SOL PO/NG SCH (09:00)
[2020-08-01 19:26] VITALS: BP 163/84
[2020-08-02 00:33] VITALS: BP 159/72
[2020-08-02] MEDS: morphine SULFATE 10 MG/ML, 1ML IVPush PRN ×3 (00:46→08:15)
[2020-08-02] MEDS: OXYcodone 5 MG/5 ML ORAL.SOL UDC PO PRN ×3 (02:17→18:37)
[2020-08-02] MEDS: ASPIRIN 81 MG TABLET CHEW PO SCH (04:29)
[2020-08-02] MEDS: HEPARIN 5,000 UNITS/ML, 1ML SQ SCH ×3 (04:30→19:57)
[2020-08-02 06:04] LABS: MEAN CORPUSCULAR HEMOGLOBIN 30.4 pg (27.0-34.8); MEAN PLATELET VOLUME 8.6 fL (7.4-10.4); PLATELET COUNT 178 x10^3/uL (130-400); RED BLOOD COUNT 3.13 x10^6/uL (3.82-5.3); RED CELL DISTRIBUTION WIDTH 16.4 % (9.6-15.2)
[2020-08-02 06:11] LABS: CHLORIDE 103 mmol/L (98-107)
[2020-08-02 06:18] LABS: ALANINE AMINOTRANSFERASE 532 U/L (12-78); ALBUMIN 2.5 g/dL (3.4-5.0); ALKALINE PHOSPHATASE 247 U/L (45-117); ANION GAP 7 mmol/L (5-15); BILIRUBIN,TOTAL 0.6 mg/dL (0.2-1.0); CALCIUM 8.3 mg/dL (8.5-10.1); CREATININE 2.78 mg/dL (0.55-1.02)
[2020-08-02 06:25] LABS: <PLATELET ESTIMATE> ADEQUATE; <PLT MORPHOLOGY> NORMAL PLT MORPH; ANISOCYTOSIS 1+; BANDS%(MANUAL) 4 % (0-7); EOS#(MANUAL) 0.13 x10^3/uL (0.0-0.4); EOS% (MANUAL) 1 % (1-7); LYMPH#(MANUAL) 0.88 x10^3/uL (1-3.4); LYMPHS% (MANUAL) 7 % (22-44); METAMYELOCYTES# (MANUAL) 0.25 x10^3/uL (0-0); METAMYELOCYTES% (MANUAL) 2 % (0-1); MONOS#(MANUAL) 0.25 x10^3/uL (0.3-2.7); MONOS% (MANUAL) 2 % (2-9); MYELOCYTES# (MANUAL) 0.13 x10^3/uL (0-0); MYELOCYTES% (MANUAL) 1 % (0-0); POLYCHROMASIA 1+; SEG#(MANUAL) 10.46 x10^3/uL (1.8-6.8); SEGS% (MANUAL) 83 % (42-75)
[2020-08-02] MEDS: ALBUTEROL/IPRATROPIUM 2.5MG/0.5MG, 3 ML NPPB SCH ×4 (07:00→20:00)
[2020-08-02 07:15] VITALS: BP 163/76
[2020-08-02] MEDS: CEFTRIAXONE 2 GM in DEXTROSE 5% 50 ML IVPB SCH (09:24)
[2020-08-02] MEDS: CALCIUM CARBONATE 500 MG TABLET PO SCH ×2 (09:25→19:56)
[2020-08-02] MEDS: CHOLESTYRAMINE LIGHT 4GM PACKET PO SCH ×2 (09:25→19:56)
[2020-08-02 14:59] VITALS: BP 129/79
[2020-08-02] MEDS: ONDANSETRON 2MG/ML, 2ML IVPush PRN (16:46)
[2020-08-02 19:07] VITALS: BP 133/83
[2020-08-03 01:27] VITALS: BP 148/85
[2020-08-03] MEDS: OXYcodone 5 MG/5 ML ORAL.SOL UDC PO PRN ×3 (01:39→13:34)
[2020-08-03] MEDS: HEPARIN 5,000 UNITS/ML, 1ML SQ SCH ×3 (04:57→20:33)
[2020-08-03] MEDS: ASPIRIN 81 MG TABLET CHEW PO SCH (04:57)
[2020-08-03 05:14] LABS: ALBUMIN 2.6 g/dL (3.4-5.0); ANION GAP 7 mmol/L (5-15); CALCIUM 8.3 mg/dL (8.5-10.1); CHLORIDE 102 mmol/L (98-107); CREATININE 3.21 mg/dL (0.55-1.02)
[2020-08-03] MEDS: ALBUTEROL/IPRATROPIUM 2.5MG/0.5MG, 3 ML NPPB SCH ×4 (06:50→19:42)
[2020-08-03 07:14] VITALS: BP 162/92
[2020-08-03] MEDS: CEFTRIAXONE 2 GM in DEXTROSE 5% 50 ML IVPB SCH (07:44)
[2020-08-03] MEDS: CHOLESTYRAMINE LIGHT 4GM PACKET PO SCH ×2 (07:51→22:35)
[2020-08-03] MEDS: CALCIUM CARBONATE 500 MG TABLET PO SCH ×2 (07:51→20:33)
[2020-08-03] MEDS: ONDANSETRON 2MG/ML, 2ML IVPush PRN (12:30)
[2020-08-03 14:52] VITALS: BP 130/76
[2020-08-03 18:42] VITALS: BP 129/77
[2020-08-04 01:08] VITALS: BP 152/84
[2020-08-04] MEDS: OXYcodone 5 MG/5 ML ORAL.SOL UDC PO PRN ×3 (01:13→14:16)
[2020-08-04] MEDS: ONDANSETRON 2MG/ML, 2ML IVPush PRN ×2 (04:16→13:04)
[2020-08-04 05:05] LABS: MEAN CORPUSCULAR HGB CONC 33.4 g/dL (32.4-35.8); MEAN PLATELET VOLUME 8.5 fL (7.4-10.4); PLATELET COUNT 152 x10^3/uL (130-400); RED BLOOD COUNT 3.03 x10^6/uL (3.82-5.3); RED CELL DISTRIBUTION WIDTH 16.1 % (9.6-15.2)
[2020-08-04 05:19] LABS: ALBUMIN 2.7 g/dL (3.4-5.0); ANION GAP 7 mmol/L (5-15); CALCIUM 8.6 mg/dL (8.5-10.1); CHLORIDE 100 mmol/L (98-107)
[2020-08-04 05:26] LABS: ALANINE AMINOTRANSFERASE 292 U/L (12-78); ALKALINE PHOSPHATASE 236 U/L (45-117); BILIRUBIN,TOTAL 0.6 mg/dL (0.2-1.0); CREATININE 2.46 mg/dL (0.55-1.02); TOTAL PROTEIN 6.4 g/dL (6.4-8.2)
[2020-08-04 05:49] LABS: BAND#(MANUAL) 0.08 x10^3/uL; BANDS%(MANUAL) 1 % (0-7); EOS#(MANUAL) 0.55 x10^3/uL (0.0-0.4); EOS% (MANUAL) 7 % (1-7); LYMPHS% (MANUAL) 9 % (22-44); MONOS#(MANUAL) 0.47 x10^3/uL (0.3-2.7); MONOS% (MANUAL) 6 % (2-9); SEG#(MANUAL) 6.01 x10^3/uL (1.8-6.8); SEGS% (MANUAL) 77 % (42-75)
[2020-08-04 05:50] LABS: <PLATELET ESTIMATE> ADEQUATE; <PLT MORPHOLOGY> NORMAL PLT MORPH; ANISOCYTOSIS 1+
[2020-08-04] MEDS: ASPIRIN 81 MG TABLET CHEW PO SCH (06:02)
[2020-08-04] MEDS: HEPARIN 5,000 UNITS/ML, 1ML SQ SCH ×3 (06:02→19:57)
[2020-08-04 06:58] VITALS: BP 151/86
[2020-08-04] MEDS: ALBUTEROL/IPRATROPIUM 2.5MG/0.5MG, 3 ML NPPB SCH ×4 (07:07→20:00)
[2020-08-04] MEDS: CEFTRIAXONE 2 GM in DEXTROSE 5% 50 ML IVPB SCH (07:47)
[2020-08-04] MEDS: CALCIUM CARBONATE 500 MG TABLET PO SCH ×2 (07:48→19:56)
[2020-08-04] MEDS ORDERED: FUROSEMIDE 40 MG/4 ML IV ONE (11:00)
[2020-08-04 14:09] VITALS: BP 140/72
[2020-08-04] MEDS: ALPRazolam 1MG TAB PO PRN (16:58)
[2020-08-04 18:55] VITALS: BP 139/75
[2020-08-04] MEDS: CARBAMAZEPINE 200 MG TABLET PO SCH (19:56)
[2020-08-05 00:23] VITALS: BP 157/80
[2020-08-05 02:19] VITALS: BP 126/76
[2020-08-05] MEDS: ALPRazolam 1MG TAB PO PRN ×3 (02:20→18:14)
[2020-08-05] MEDS: ASPIRIN 81 MG TABLET CHEW PO SCH (05:03)
[2020-08-05] MEDS: HEPARIN 5,000 UNITS/ML, 1ML SQ SCH ×3 (05:03→21:02)
[2020-08-05] MEDS: OXYcodone 5 MG/5 ML ORAL.SOL UDC PO PRN ×3 (05:17→23:28)
[2020-08-05 06:19] LABS: ALANINE AMINOTRANSFERASE 206 U/L (12-78); ALBUMIN 2.6 g/dL (3.4-5.0); ANION GAP 4 mmol/L (5-15); CALCIUM 8.6 mg/dL (8.5-10.1); CHLORIDE 101 mmol/L (98-107)
[2020-08-05 06:22] LABS: ALKALINE PHOSPHATASE 208 U/L (45-117); BASOPHILS % (AUTO) 1 % (0-1); BILIRUBIN,TOTAL 0.4 mg/dL (0.2-1.0); EOSINOPHILS % (AUTO) 5 % (1-7); LYMPHOCYTES % (AUTO) 19 % (22-44); MEAN CORPUSCULAR HEMOGLOBIN 30.9 pg (27.0-34.8); MEAN CORPUSCULAR HGB CONC 33.3 g/dL (32.4-35.8); MEAN PLATELET VOLUME 8.4 fL (7.4-10.4); MONOCYTES % (AUTO) 13 % (2-9); NEUTROPHILS % (AUTO) 62 % (42-75); PLATELET COUNT 167 x10^3/uL (130-400); RED BLOOD COUNT 3.01 x10^6/uL (3.82-5.3); RED CELL DISTRIBUTION WIDTH 15.9 % (9.6-15.2); TOTAL PROTEIN 6.1 g/dL (6.4-8.2)
[2020-08-05 07:46] VITALS: BP 138/83
[2020-08-05] MEDS: ALBUTEROL/IPRATROPIUM 2.5MG/0.5MG, 3 ML NPPB SCH ×4 (07:55→19:35)
[2020-08-05] MEDS: CARBAMAZEPINE 200 MG TABLET PO SCH ×2 (08:27→21:02)
[2020-08-05] MEDS: CALCIUM CARBONATE 500 MG TABLET PO SCH ×2 (08:27→21:01)
[2020-08-05] MEDS: MIRTAZAPINE 15 MG TABLET PO SCH (08:28)
[2020-08-05] MEDS: FLUOXETINE HCL 20 MG CAPSULE PO SCH (08:28)
[2020-08-05 13:12] VITALS: BP 132/78
[2020-08-05 20:03] VITALS: BP 105/69
[2020-08-06 00:20] VITALS: BP 139/82
[2020-08-06] MEDS: ALPRazolam 1MG TAB PO PRN ×3 (01:53→22:34)
[2020-08-06] MEDS: OXYcodone 5 MG/5 ML ORAL.SOL UDC PO PRN (05:31)
[2020-08-06] MEDS: HEPARIN 5,000 UNITS/ML, 1ML SQ SCH ×3 (05:31→19:59)
[2020-08-06] MEDS: ASPIRIN 81 MG TABLET CHEW PO SCH (05:31)
[2020-08-06 06:39] LABS: BASOPHILS % (AUTO) 1 % (0-1); EOSINOPHILS % (AUTO) 4 % (1-7); LYMPHOCYTES % (AUTO) 22 % (22-44); MEAN CORPUSCULAR HEMOGLOBIN 30.8 pg (27.0-34.8); MEAN CORPUSCULAR HGB CONC 33.2 g/dL (32.4-35.8); MEAN PLATELET VOLUME 8.2 fL (7.4-10.4); MONOCYTES % (AUTO) 14 % (2-9); NEUTROPHILS % (AUTO) 60 % (42-75); PLATELET COUNT 200 x10^3/uL (130-400); RED BLOOD COUNT 3.16 x10^6/uL (3.82-5.3); RED CELL DISTRIBUTION WIDTH 16.6 % (9.6-15.2)
[2020-08-06 07:03] LABS: ANION GAP 5 mmol/L (5-15); CHLORIDE 102 mmol/L (98-107)
[2020-08-06 07:07] LABS: ALBUMIN 2.7 g/dL (3.4-5.0); CREATININE 2.71 mg/dL (0.55-1.02)
[2020-08-06 08:26] VITALS: BP 136/64
[2020-08-06] MEDS: ALBUTEROL/IPRATROPIUM 2.5MG/0.5MG, 3 ML NPPB SCH ×4 (09:00→19:30)
[2020-08-06] MEDS: CALCIUM CARBONATE 500 MG TABLET PO SCH ×2 (09:09→19:59)
[2020-08-06] MEDS: MIRTAZAPINE 15 MG TABLET PO SCH (09:09)
[2020-08-06] MEDS: FLUOXETINE HCL 20 MG CAPSULE PO SCH (09:09)
[2020-08-06] MEDS: CARBAMAZEPINE 200 MG TABLET PO SCH ×2 (09:09→19:59)
[2020-08-06] MEDS: ONDANSETRON 2MG/ML, 2ML IVPush PRN (09:38)
[2020-08-06 12:05] VITALS: BP 142/87
[2020-08-06] MEDS: ERGOCALCIFEROL 8,000UNIT/ML PO SCH (13:29)
[2020-08-06 20:06] VITALS: BP 152/91
[2020-08-07] VITALS: BP 154/89
[2020-08-07] MEDS: OXYcodone 5 MG/5 ML ORAL.SOL UDC PO PRN (00:09)
[2020-08-07] MEDS: ONDANSETRON 2MG/ML, 2ML IVPush PRN (04:22)
[2020-08-07 05:24] LABS: ANION GAP 4 mmol/L (5-15); CALCIUM 8.7 mg/dL (8.5-10.1); CHLORIDE 104 mmol/L (98-107)
[2020-08-07 05:25] LABS: CREATININE 2.46 mg/dL (0.55-1.02)
[2020-08-07] MEDS: HEPARIN 5,000 UNITS/ML, 1ML SQ SCH (05:51)
[2020-08-07] MEDS: ASPIRIN 81 MG TABLET CHEW PO SCH (05:51)
[2020-08-07] MEDS: ALPRazolam 1MG TAB PO PRN (05:51)
[2020-08-07 06:54] VITALS: BP 149/79
[2020-08-07] MEDS: ALBUTEROL/IPRATROPIUM 2.5MG/0.5MG, 3 ML NPPB SCH ×2 (07:00→10:12)
[2020-08-07] MEDS ORDERED: AMLODIPINE 5 MG TABLET PO SCH (09:00)
[2020-08-07] MEDS: FLUOXETINE HCL 20 MG CAPSULE PO SCH (10:14)
[2020-08-07] MEDS: MIRTAZAPINE 15 MG TABLET PO SCH (10:14)
[2020-08-07] MEDS: CARBAMAZEPINE 200 MG TABLET PO SCH (10:14)
[2020-08-07] MEDS: CALCIUM CARBONATE 500 MG TABLET PO SCH (10:15)
[2020-08-07] MEDS ORDERED: AMLO-150 PO (10:35)
[2020-08-07] MEDS ORDERED: ASPI-963 PO (10:35)
== END 2020-08-07 11:42 | disposition home or self-care (01) | DRG 720 ==
LOC: ED 22:11 → EDIP 22:57 → CCU 07-25 00:13 → 3N 08-01 10:35
PROVIDERS: ADMIT Family Medicine; ATTEND Hospitalist
PROC: 5A1955Z Respiratory Ventilation, Greater than 96 Consecutive Hours (ICD-10-PCS; principal; 2020-07-24)
PROC: 0BH17EZ Insertion of Endotracheal Airway into Trachea, Via Natural or Artificial Opening (ICD-10-PCS; 2020-07-24)
PROC: 0T9B70Z Drainage of Bladder with Drainage Device, Via Natural or Artificial Opening (ICD-10-PCS; 2020-07-24)
PROC: 02HV33Z Insertion of Infusion Device into Superior Vena Cava, Percutaneous Approach (ICD-10-PCS; 2020-07-24)
PROC: B548ZZA Ultrasonography of Superior Vena Cava, Guidance (ICD-10-PCS; 2020-07-24)
PROC: 02HV33Z Insertion of Infusion Device into Superior Vena Cava, Percutaneous Approach (ICD-10-PCS; 2020-07-26)
PROC: B548ZZA Ultrasonography of Superior Vena Cava, Guidance (ICD-10-PCS; 2020-07-26)
PROC: 02HV33Z Insertion of Infusion Device into Superior Vena Cava, Percutaneous Approach (ICD-10-PCS; 2020-07-26)
PROC: B548ZZA Ultrasonography of Superior Vena Cava, Guidance (ICD-10-PCS; 2020-07-26)
PROC: 5A1D70Z Performance of Urinary Filtration, Intermittent, Less than 6 Hours Per Day (ICD-10-PCS; 2020-07-27)
PROC: 5A1D70Z Performance of Urinary Filtration, Intermittent, Less than 6 Hours Per Day (ICD-10-PCS; 2020-07-28)
PROC: 5A1D70Z Performance of Urinary Filtration, Intermittent, Less than 6 Hours Per Day (ICD-10-PCS; 2020-07-30)
PROC: 5A1D70Z Performance of Urinary Filtration, Intermittent, Less than 6 Hours Per Day (ICD-10-PCS; 2020-08-01)
PROC: 5A1D70Z Performance of Urinary Filtration, Intermittent, Less than 6 Hours Per Day (ICD-10-PCS; 2020-08-03)
DX: A41.9 Sepsis, unspecified organism (principal); I21.A1 Myocardial infarction type 2; K72.00 Acute and subacute hepatic failure without coma; I50.41 Acute combined systolic (congestive) and diastolic (congestive) heart failure; J15.6 Pneumonia due to other Gram-negative bacteria; J96.01 Acute respiratory failure with hypoxia; J96.02 Acute respiratory failure with hypercapnia; N17.0 Acute kidney failure with tubular necrosis; I11.0 Hypertensive heart disease with heart failure; I27.29 Other secondary pulmonary hypertension; E88.09 Other disorders of plasma-protein metabolism, not elsewhere classified; I50.82 Biventricular heart failure; R65.21 Severe sepsis with septic shock; Z99.11 Dependence on respirator [ventilator] status; M19.90 Unspecified osteoarthritis, unspecified site; J44.0 Chronic obstructive pulmonary disease with (acute) lower respiratory infection; J44.1 Chronic obstructive pulmonary disease with (acute) exacerbation; J98.11 Atelectasis; G43.909 Migraine, unspecified, not intractable, without status migrainosus; F41.9 Anxiety disorder, unspecified; B17.9 Acute viral hepatitis, unspecified; F15.10 Other stimulant abuse, uncomplicated; D63.8 Anemia in other chronic diseases classified elsewhere; K86.9 Disease of pancreas, unspecified; B19.20 Unspecified viral hepatitis C without hepatic coma; E21.3 Hyperparathyroidism, unspecified; E55.9 Vitamin D deficiency, unspecified; F32.9 Major depressive disorder, single episode, unspecified; I47.2 Ventricular tachycardia; K56.7 Ileus, unspecified; Z79.899 Other long term (current) drug therapy; Z22.322 Carrier or suspected carrier of Methicillin resistant Staphylococcus aureus; Z79.891 Long term (current) use of opiate analgesic; Z79.01 Long term (current) use of anticoagulants
CPT/HCPCS: 31500; 36415; 36556; 36600; 36680; 71045; 74018; 74176; 74181; 74230; 76700; 76937; 80048; 80053; 80069; 80074; 80076; 80202; 80299; 80307; 80320; 80329; 81001; 82140; 82150; 82272; 82306; 82330; 82436; 82533; 82550; 82570; 82607; 82728; 82784; 82803; 83516; 83540; 83550; 83605; 83690; 83735; 83880; 83970; 84100; 84133; 84145; 84300; 84443; 84478; 84484; 84550; 85025; 85520; 85610; 86038; 86301; 86480; 86706; 87040; 87070; 87077; 87081; 87184; 87186; 87205; 87324; 87521; 90935; 93005; 93306; 94002; 94003; 94640; 96374; 99291; C1894; G0378; J0610; J0636; J0696; J1644; J1940; J2250; J2405; J2543; J2704; J3010; J3370; J7626; C1751; G0480; J1642; J2270; J2765; J2920; J2930; J7030; J7040; J7050; J7120; J7512